=== PATIENT | female | born 1950 | race Caucasian/White ===

== ENCOUNTER 2019-02-20 10:12 | Emergency (ER) | payer MEDICARE, OTHER ==
[2019-02-20] MEDS ORDERED: Tetracaine HCl/PF 0.5% 4 ML Bottle EYERT ONE (10:27)
--- NOTE | 2019-02-20 10:27 | EDM.PDOC ---
ED HPI GENERAL MEDICAL PROBLEM - General Chief Complaint: Eye Problems Stated Complaint: RT EYE PAIN Time Seen by Provider: 02/20/19 10:25 Source of Information: Reports: Patient History Limitations: Reports: No Limitations - History of Present Illness INITIAL COMMENTS - FREE TEXT/NARRATIVE: HISTORY AND PHYSICAL: History of present illness: Patient is a 68-year-old female who presents to the emergency room with complaints of foreign body in the right eye. She states while using her makeup mirror she noticed "black dots" on the right eye which she had not noticed previous. She states since noticing that she does have some irritation. Patient does not recall any activities where if she would have been exposed to a foreign body (such as welding or anything falling into her eye). She states she was gardening yesterday and cleaning in the basement; but doesn't recall noticing any "pinpoint" time which something bothered her eye. Patient reports that she used Latisse for the first time yesterday. Did not have any burning or discomfort with application. She denies any change in vision. Denies any pain with ocular movement. Patient denies any fever, chills, headache, change in vision, syncope or near syncope. Denies any chest pain, back pain, shortness of breath or cough. Denies any abdominal pain, nausea, vomiting, diarrhea, constipation or dysuria. Has not noted any blood in urine or stool. Patient has been eating and drinking appropriately. Review of systems: As per history of present illness and below otherwise all systems reviewed and negative. Past medical history: As per history of present illness and as reviewed below otherwise noncontributory. Surgical history: As per history of present illness and as reviewed below otherwise noncontributory. Social history: See social history for further information Family history: As per history of present illness and as reviewed below otherwise noncontributory. Physical exam: General: Well-developed and well-nourished 68-year-old female. Alert and oriented. Nontoxic appearing and in no acute distress. HEENT: Atraumatic, normocephalic, pupils equal and reactive bilaterally, negative for conjunctival pallor or scleral icterus, normal variance of the pinguecula to bilateral sclera. Her mucous membranes are moist, TMs normal bilaterally, throat clear, neck supple, nontender, trachea midline. No drooling or trismus noted. No meningeal signs. No hot potato voice noted. Lungs: Clear to auscultation, breath sounds equal bilaterally, chest nontender. Heart: S1S2, regular rate and rhythm without overt murmur Abdomen: Soft, nondistended, nontender. Negative for masses. Pelvis: Stable nontender. Genitourinary: Deferred. Rectal: Deferred. Skin: Intact, warm, dry. No lesions or rashes noted. Extremities: Atraumatic, moves all extremities per self without difficulty or deficits, negative for cords or calf pain. Neurovascular unremarkable. Neuro: Awake, alert, oriented. Cranial nerves II through XII unremarkable. Cerebellum unremarkable. Motor and sensory unremarkable throughout. Exam nonfocal. Notes: Visual Acuity done and reviewed by me. Patient wears glasses, but no contact lenses. Tetracaine was used for comfort purposes. Fluorescein and Mcdermott lamp used for eye exam. Small corneal abrasion noted at the 7 o'clock position on the iris. Patient has no ocular pain with range of motion. No scleral injection. No drainage or discharge noted. We'll treat with erythromycin ointment. I encouraged her to follow-up with the wine cellar stock clerk on Friday for reevaluation if she continues to have symptoms, or return to the ED at anytime. Supportive care measures were reviewed and discussed. Voices understanding and is agreeable to plan of care. Denies any further questions or concerns at this time. Diagnostics: Visual Exam Therapeutics: Tetracaine Prescription: Erythromycin ointment Impression: Corneal abrasion, right Plan: 1. Take the antibiotic as directed. 2. Call Friday to follow up with ophthalmology. 3. Please stop using the Latisse until your symptoms have resolved. 4. Return to the ED as needed and as discussed. Definitive disposition and diagnosis as appropriate pending reevaluation and review of above. - Related Data Allergies Allergy/AdvReac Type Severity Reaction Status Date / Time No Known Allergies Allergy Verified 04/03/15 10:56 Home Meds: Home Meds Multivitamin [Multi-Vitamin Daily] 1 tab PO DAILY 04/03/15 [History] Apixaban [Eliquis] 5 mg PO DAILY 02/20/19 [History] Butalb/Acetaminophen/Caffeine [Jbzvbg-Yipoxcwp-Raol 50-325-40] 1 tab PO PRN [History] Calcium Carbonate/Vitamin D3 [Caltrate 600 + D Soft Chew Tab] 1 tab PO DAILY [History] Erythromycin Base [Erythromycin 0.5% Ophth Oint] 1 applic OP Q4H 5 Days #1 tube 02/20/19 [Rx] Hydrocodone/Acetaminophen [[place]am 5-325 Tablet] 1 tab PO DAILY PRN 02/20/19 [ History] Metoprolol Succinate/HCTZ [Metoprolol ER-Hctz 25-12.5 mg] 1 tab PO DAILY [History] Omeprazole 20 mg PO DAILY 02/20/19 [History] ED ROS GENERAL - Review of Systems Review Of Systems: ROS reveals no pertinent complaints other than HPI. ED EXAM GENERAL W FULL EYE - Physical Exam Exam: See Below (See dictation) Course - Vital Signs Last Recorded V/S: Last Vital Signs Temp 97.5 F 02/20/19 10:31 Pulse 67 02/20/19 10:31 Resp 18 02/20/19 10:31 BP 125/65 02/20/19 10:31 Pulse Ox 98 02/20/19 10:31 - Orders/Labs/Meds Meds: Medications Discontinued Medications Generic Name Dose Route Start Last Admin Trade Name Freq PRN Reason Stop Dose Admin Tetracaine HCl 1 ml 02/20/19 10:27 02/20/19 10:38 Tetracaine 0.5% Steri-Unit Jessica EYERT 02/20/19 10:28 1 applic ASDIRECTED ONE Administration Tetracaine HCl Confirm 02/20/19 10:38 Tetracaine 0.5% Steri-Unit Jessica Administered 02/20/19 10:39 Dose 4 ml .ROUTE .STK-MED ONE Departure - Departure Time of Disposition: 10:41 Disposition: Home, Self-Care 01 Clinical Impression: Corneal abrasion, left Qualifiers: Encounter type: initial encounter Qualified Code(s): S05.02XA - Injury of conjunctiva and corneal abrasion without foreign body, left eye, initial encounter - Discharge Information Prescriptions: Erythromycin Base [Erythromycin 0.5% Ophth Oint] 1 applic OP Q4H 5 Days #1 tube Instructions: Corneal Abrasion, [id number] Referrals: PCP,None [Primary Care Provider] - Forms: ED Department Discharge Additional Instructions: The following information is given to patients seen in the emergency department who are being discharged to home. This information is to outline your options for follow-up care. We provide all patients seen in our emergency department with a follow-up referral. The need for follow-up, as well as the timing and circumstances, are variable depending upon the specifics of your emergency department visit. If you don't have a primary care physician on staff, we will provide you with a referral. We always advise you to contact your personal physician following an emergency department visit to inform them of the circumstance of the visit and for follow-up with them and/or the need for any referrals to a consulting specialist. The emergency department will also refer you to a specialist when appropriate. This referral assures that you have the opportunity for follow-up care with a specialist. All of these measure are taken in an effort to provide you with optimal care, which includes your follow-up. Under all circumstances we always encourage you to contact your private physician who remains a resource for coordinating your care. When calling for follow-up care, please make the office aware that this follow-up is from your recent emergency room visit. If for any reason you are refused follow-up, please contact the [facility] Emergency Department at and asked to speak to the emergency department charge nurse. [facility] [address] [place] [id number] [facility] [address] [place] [id number] 1. Take the antibiotic as directed. 2. Call Friday to follow up with ophthalmology. 3. Please stop using the Latisse until your symptoms have resolved. 4. Return to the ED as needed and as discussed.
[2019-02-20] MEDS ORDERED: Tetracaine HCl/PF 0.5% 4 ML Bottle ONE (10:38)
[2019-02-20 12:43] VITALS: BP 121/70
== END 2019-02-20 11:00 | disposition home or self-care (01) ==
LOC: MW.ED 10:12
DX: S05.02XA Injury of conjunctiva and corneal abrasion without foreign body, left eye, initial encounter (principal); X58.XXXA Exposure to other specified factors, initial encounter
CPT/HCPCS: 99283

== ENCOUNTER 2019-03-23 08:32 | Emergency (ER) | payer MEDICARE, OTHER ==
[2019-03-23] MEDS ORDERED: Sodium Chloride 0.9% 2.5 ML Syringe FLUSH PRN (08:37)
[2019-03-23] MEDS ORDERED: Sodium Chloride 0.9% 10 ML Syringe FLUSH PRN (08:37)
--- NOTE | 2019-03-23 08:42 | EDM.PDOC ---
ED HPI GENERAL MEDICAL PROBLEM - General Chief Complaint: Cardiovascular Problem Stated Complaint: FAST HEART RATE Time Seen by Provider: 03/23/19 08:36 - History of Present Illness INITIAL COMMENTS - FREE TEXT/NARRATIVE: HISTORY AND PHYSICAL: History of present illness: Patient's a 68-year-old white female with history of atrial fibrillation with recent reconstructive surgery for her breast status post mastectomy who presents with a concern of palpitations patient denies chest pain she states she felt a little "shaky with this" on arrival there is no shortness of breath or chest pain. She was on eliquis which was discontinued preoperatively and she continues off the medication currently. Review of systems: As per history of present illness and below otherwise all systems reviewed and negative. Past medical history: As per history of present illness and as reviewed below otherwise noncontributory. Surgical history: As per history of present illness and as reviewed below otherwise noncontributory. Social history: No reported history of drug or alcohol abuse. Family history: As per history of present illness and as reviewed below otherwise noncontributory. Physical exam: HEENT: Atraumatic, normocephalic, pupils reactive, negative for conjunctival pallor or scleral icterus, mucous membranes moist, throat clear, neck supple, nontender, trachea midline. Lungs: Clear to auscultation, breath sounds equal bilaterally, chest nontender. Heart: S1S2, regular, negative for clicks, rubs, or JVD. Abdomen: Soft, nondistended, nontender. Negative for masses or hepatosplenomegaly. Negative for costovertebral tenderness. Pelvis: Stable nontender. Genitourinary: Deferred. Rectal: Deferred. Extremities: Atraumatic, negative for cords or calf pain. Neurovascular unremarkable. Neuro: Awake, alert, oriented. Cranial nerves II through XII unremarkable. Cerebellum unremarkable. Motor and sensory unremarkable throughout. Exam nonfocal. Diagnostics: CBC CMP troponin PT/INR chest x-ray EKG Therapeutics: IV O2 monitor Impression: #1 palpitations #2 history of atrial fibrillation #3 history of recent breast reconstructive surgery Definitive disposition and diagnosis as appropriate pending reevaluation and review of above. - Related Data Allergies Allergy/AdvReac Type Severity Reaction Status Date / Time No Known Allergies Allergy Verified 03/23/19 08:40 Home Meds: Home Meds Multivitamin [Multi-Vitamin Daily] 1 tab PO DAILY 04/03/15 [History] Apixaban [Eliquis] 5 mg PO BID 02/20/19 [History] Butalb/Acetaminophen/Caffeine [Yyhrnx-Fugwgvmq-Vclv 50-325-40] 1 tab PO Q4H PRN 02/20/19 [History] Calcium Carbonate/Vitamin D3 [Caltrate 600 + D Soft Chew Tab] 1 tab PO DAILY [History] Omeprazole 20 mg PO DAILY 02/20/19 [History] Cefadroxil [Duricef] 500 mg PO BID 03/23/19 [History] Metoprolol Succinate [Toprol XL 100mg] 50 mg PO DAILY 03/23/19 [History] Ondansetron [Zofran ODT] 4 mg PO Q4H PRN 03/23/19 [History] Tamoxifen Citrate 20 mg PO DAILY 03/23/19 [History] traMADol [Ultram] 50 mg PO Q8HR PRN 03/23/19 [History] Past Medical History HEENT History: Reports: Impaired Vision Cardiovascular History: Reports: Afib - Past Surgical History Female Surgical History: Reports: Breast Biopsy, Mastectomy ED ROS GENERAL - Review of Systems Review Of Systems: ROS reveals no pertinent complaints other than HPI. ED EXAM, GENERAL - Physical Exam Exam: See Below (dictation) Course - Vital Signs Text/Narrative:: Patient's emergency department course has been unremarkable I discussed with patient her diagnostics and offered admission for observation patient declines will follow with her doctor and return as needed as discussed Last Recorded V/S: Last Vital Signs Temp 36.5 C 03/23/19 08:37 Pulse 67 03/23/19 09:44 Resp 14 03/23/19 09:44 BP 145/78 H 03/23/19 09:44 Pulse Ox 97 03/23/19 09:44 - Orders/Labs/Meds Orders: Active Orders 24 hr Category Date Time Status Cardiac Monitoring [RC] . DIRECTED Care 03/23/19 08:37 Active EKG Documentation Completion [RC] STAT Care 03/23/19 08:37 Active Pulse Oximetry [RC] ASDIRECTED Care 03/23/19 08:37 Active Chest 1V Frontal [CR] Stat Exams 03/23/19 08:37 Taken Sodium Chloride 0.9% [Saline Flush] Med 03/23/19 08:37 Active 10 ml FLUSH ASDIRECTED PRN Sodium Chloride 0.9% [Saline Flush] Med 03/23/19 08:37 Active 2.5 ml FLUSH ASDIRECTED PRN Saline Lock Insert [OM.PC] Stat Oth 03/23/19 08:37 Ordered Medication Orders Sodium Chloride (Saline Flush) 10 ml FLUSH ASDIRECTED PRN PRN Reason: Keep Vein Open Sodium Chloride (Saline Flush) 2.5 ml FLUSH ASDIRECTED PRN PRN Reason: Keep Vein Open Labs: Laboratory Tests 03/23/19 03/23/19 03/23/19 Range/Units 08:54 08:54 08:54 WBC 3.73 L (4.0-11.0) K/uL RBC 4.17 L (4.30-5.90) M/uL Hgb 12.1 (12.0-16.0) g/dL Hct 38.2 (36.0-46.0) % MCV 91.6 (80.0-98.0) fL MCH 29.0 (27.0-32.0) pg MCHC 31.7 (31.0-37.0) g/dL RDW Std Deviation 43.9 (28.0-62.0) fl RDW Coeff of Patricia 13 (11.0-15.0) % Plt Count 190 (150-400) K/uL MPV 10.50 (7.40-12.00) fL Neut % (Auto) 51.2 (48.0-80.0) % Lymph % (Auto) 33.5 (16.0-40.0) % [place] % (Auto) 8.8 (0.0-15.0) % Eos % (Auto) 6.2 (0.0-7.0) % Baso % (Auto) 0.3 (0.0-1.5) % Neut # (Auto) 1.9 (1.4-5.7) K/uL Lymph # (Auto) 1.3 (0.6-2.4) K/uL [place] # (Auto) 0.3 (0.0-0.8) K/uL Eos # (Auto) 0.2 (0.0-0.7) K/uL Baso # (Auto) 0.0 (0.0-0.1) K/uL Nucleated RBC % 0.0 /100WBC Nucleated RBCs # 0 K/uL INR 0.97 Sodium 142 (136-145) mmol/L Potassium 3.8 (3.5-5.1) mmol/L Chloride 107 (98-107) mmol/L Carbon Dioxide 26.3 (21.0-32.0) mmol/L BUN 21 H (7.0-18.0) mg/dL Creatinine 0.9 (0.6-1.0) mg/dL Est Cr Clr Drug Dosing 55.33 mL/min Estimated GFR (MDRD) > 60.0 ml/min Glucose 92 (74-106) mg/dL Calcium 8.6 (8.5-10.1) mg/dL Total Bilirubin 0.4 (0.2-1.0) mg/dL AST 22 (15-37) IU/L ALT 18 (14-63) IU/L Alkaline Phosphatase 46 (46-116) U/L Troponin I < 0.050 (0.000-0.056) ng/mL Total Protein 6.6 (6.4-8.2) g/dL Albumin 3.2 L (3.4-5.0) g/dL Globulin 3.4 (2.6-4.0) g/dL Albumin/Globulin Ratio 0.9 (0.9-1.6) TSH 3rd Generation 4.42 H (0.36-3.74) uIU/mL Meds: Medications Generic Name Dose Route Start Last Admin Trade Name Freq PRN Reason Stop Dose Admin Sodium Chloride 10 ml 03/23/19 08:37 Saline Flush FLUSH ASDIRECTED PRN Keep Vein Open Sodium Chloride 2.5 ml 03/23/19 08:37 Saline Flush FLUSH ASDIRECTED PRN Keep Vein Open Departure - Departure Time of Disposition: 10:10 Disposition: Home, Self-Care 01 Condition: Good Clinical Impression: Palpitations Referrals: PCP,None [Primary Care Provider] - Forms: ED Department Discharge Additional Instructions: The following information is given to patients seen in the emergency department who are being discharged to home. This information is to outline your options for follow-up care. We provide all patients seen in our emergency department with a follow-up referral. The need for follow-up, as well as the timing and circumstances, are variable depending upon the specifics of your emergency department visit. If you don't have a primary care physician on staff, we will provide you with a referral. We always advise you to contact your personal physician following an emergency department visit to inform them of the circumstance of the visit and for follow-up with them and/or the need for any referrals to a consulting specialist. The emergency department will also refer you to a specialist when appropriate. This referral assures that you have the opportunity for followup care with a specialist. All of these measure are taken in an effort to provide you with optimal care, which includes your followup. Under all circumstances we always encourage you to contact your private physician who remains a resource for coordinating your care. When calling for followup care, please make the office aware that this follow-up is from your recent emergency room visit. If for any reason you are refused follow-up, please contact the [facility] emergency department at and asked to speak to the emergency department charge nurse. Continue current medications as directed follow-up primary medical doctor as discussed return as needed as discussed - My Orders Last 24 Hours: My Active Orders 03/23/19 08:37 Cardiac Monitoring [RC] . DIRECTED EKG Documentation Completion [RC] STAT Pulse Oximetry [RC] ASDIRECTED Chest 1V Frontal [CR] Stat Sodium Chloride 0.9% [Saline Flush] 10 ml FLUSH ASDIRECTED PRN Sodium Chloride 0.9% [Saline Flush] 2.5 ml FLUSH ASDIRECTED PRN Saline Lock Insert [OM.PC] Stat - Assessment/Plan Last 24 Hours: My Active Orders 03/23/19 08:37 Cardiac Monitoring [RC] . DIRECTED EKG Documentation Completion [RC] STAT Pulse Oximetry [RC] ASDIRECTED Chest 1V Frontal [CR] Stat Sodium Chloride 0.9% [Saline Flush] 10 ml FLUSH ASDIRECTED PRN Sodium Chloride 0.9% [Saline Flush] 2.5 ml FLUSH ASDIRECTED PRN Saline Lock Insert [OM.PC] Stat
[2019-03-23 09:47] LABS: CHLORIDE,CL 107 mmol/L (98-107); SODIUM,NA 142 mmol/L (136-145)
--- NOTE | 2019-03-23 10:18 | CR ---
EXAM DATE: 03/23/19 PATIENT'S AGE: 68 Patient: YVONNE SIMON Facility: [facility] Site Site : 1950 Study: XRay-Chest [id number]/28/2019 9:20:32 AM Ordering Physician: CLINTON JIMENEZ MD Final Report: CHEST 1 VIEW AP INDICATION: Chest pain. IMPRESSION: Normal heart size and vascular pattern. Lungs are clear. No pneumothorax or pleural abnormality. ECG Monitor leads projected over the patient. Dictated by Robel Dennison MD @ Mar 23 2019 9:47AM Signed by: Robel Dennison MD @03/23/2019 9:48:56 AM (Electronic Signature) Report Signed by Proxy. [facility]
[2019-03-23 11:27] VITALS: BP 141/78
== END 2019-03-23 10:29 | disposition home or self-care (01) ==
LOC: MW.ED 08:32
DX: R00.2 Palpitations (principal); I48.91 Unspecified atrial fibrillation; Z79.899 Other long term (current) drug therapy
CPT/HCPCS: 36415; 71045; 71045-26; 80053; 84443; 84484; 85025; 85610; 93005; 99283; 99285-25

== ENCOUNTER 2020-09-26 07:24 | Day surgery (SDC) | payer MEDICARE, OTHER ==
[~2020-09-26 07:24] MED LIST: Glycopyrrolate 0.2 MG/ML SDV ONE; Lactated Ringers 1,000 ML IV SCH; Lidocaine 2% 5 ML SDV ONE; Midazolam 1 MG/ML 2 ML SDV ONE; Propofol 200 MG/20 ML SDV ONE; Sodium Chloride 0.9% 10 ML SDV IV PRN; Sodium Chloride 0.9% 10 ML Syringe FLUSH PRN; Sodium Chloride 0.9% 2.5 ML Syringe FLUSH PRN
--- NOTE | 2020-09-26 08:19 | PCM.PREANE ---
Preanesthetic Assessment - Anesthesia/Transfusion/Family Hx Anesthesia History: Prior Anesthesia Reaction Other Type of Anesthesia Reaction Comment: states has a small airway Family History of Anesthesia Reaction: No Transfusion History: No Prior Transfusion(s) - Review of Systems General: No Symptoms Pulmonary: No Symptoms Cardiovascular: No Symptoms Gastrointestinal: No Symptoms Neurological: No Symptoms Other: Reports: None - Physical Assessment NPO Status Date: 09/25/20 Vital Signs: Last Vital Signs Temp 97.7 F 09/26/20 07:43 Pulse 94 09/26/20 07:43 Resp 15 09/26/20 07:43 BP 134/64 09/26/20 07:43 Pulse Ox 96 09/26/20 07:43 Height: 5 ft 5 in Weight: 63.503 kg ASA Class: 2 Mental Status: Alert & Oriented x3 Airway Class: Mallampati = 2 Dentition: Reports: Normal Dentition ROM/Head Extension: Full Lungs: Clear to Auscultation, Normal Respiratory Effort Cardiovascular: Regular Rate - Allergies Allergies/Adverse Reactions: Allergies Allergy/AdvReac Type Severity Reaction Status Date / Time oxycodone Allergy Vomiting Verified 09/20/20 08:09 - Blood Blood Available: No - Anesthesia Plan Pre-Op Medication Ordered: None - Acknowledgements Anesthesia Type Planned: General Anesthesia Pt an Appropriate Candidate for the Planned Anesthesia: Yes Alternatives and Risks of Anesthesia Discussed w Pt/Guardian: Yes Pt/Guardian Understands and Agrees with Anesthesia Plan: Yes PreAnesthesia Questionnaire HEENT History: Reports: Impaired Vision Other HEENT History: wears glasses Cardiovascular History: Reports: Arrhythmia Respiratory History: Reports: None Gastrointestinal History: Reports: GERD Genitourinary History: Reports: None Musculoskeletal History: Reports: Arthritis Other Musculoskeletal History: 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 Neurological History: Reports: Migraines Psychiatric History: Reports: Anxiety Endocrine/Metabolic History: Reports: Hypothyroidism Hematologic History: Reports: None Immunologic History: Reports: None Oncologic (Cancer) History: Reports: Breast Other Oncologic History: states had radiation, hormone therapy and had mastectomy for breast cancer (right breast) Dermatologic History: Reports: None - Infectious Disease History Infectious Disease History: Reports: Chicken Pox, Measles, Mumps Other Infectious Disease History: when a child - Past Surgical History Head Surgeries/Procedures: Reports: None HEENT Surgical History: Reports: Tonsillectomy, Other (See Below) Other HEENT Surgeries/Procedures: Jaw, oral maxillary Cardiovascular Surgical History: Reports: None GI Surgical History: Reports: None Female Surgical History: Reports: Breast Biopsy, Mastectomy Musculoskeletal Surgical History: Reports: Other (See Below) Other Musculoskeletal Surgeries/Procedures:: bunionectomy Oncologic Surgical History: Reports: Mastectomy Other Oncologic Surgeries/Procedures: right breast - SUBSTANCE USE Tobacco Use Status *Q: Never Tobacco User - HOME MEDS Home Medications: Home Meds Multivitamin [Multi-Vitamin Daily] 1 tab PO DAILY 04/03/15 [History] Butalb/Acetaminophen/Caffeine [Ybhlcc-Jcsfpvwm-Ytch 50-325-40] 1 tab PO Q4H PRN 02/20/19 [History] Calcium Carbonate/Vitamin D3 [Caltrate 600 + D Soft Chew Tab] 1 tab PO DAILY 02/20/19 [History] Metoprolol Succinate [Toprol XL 100mg] 50 mg PO DAILY 03/23/19 [History] Tamoxifen Citrate 20 mg PO DAILY 03/23/19 [History] Aspirin 1 tab PO DAILY 09/20/20 [History] Doxepin [SINEquan] 1 tab PO ASDIRECTED PRN 09/20/20 [History] Iron,Carbonyl/Ascorbic Acid [Vitron-C Tablet] 1 tab PO DAILY 09/20/20 [History] Levothyroxine Sodium [Levoxyl] 1 tab PO DAILY 09/20/20 [History] - CURRENT (IN HOUSE) MEDS Current Meds: Current Medications Lactated Ringer's (Ringers, Lactated) 1,000 mls @ 125 mls/hr IV ASDIRECTED JORJE Last Admin: 09/26/20 07:50 Dose: 125 mls/hr Documented by: Sodium Chloride (Saline Flush) 10 ml FLUSH ASDIRECTED PRN PRN Reason: Keep Vein Open Sodium Chloride (Saline Flush) 2.5 ml FLUSH ASDIRECTED PRN PRN Reason: Keep Vein Open Sodium Chloride (Saline Flush) 10 ml FLUSH ASDIRECTED PRN PRN Reason: Keep Vein Open Sodium Chloride (Saline Flush) 2.5 ml FLUSH ASDIRECTED PRN PRN Reason: Keep Vein Open Sodium Chloride (Normal Saline) 10 ml IV ASDIRECTED PRN PRN Reason: IV Use Discontinued Medications Glycopyrrolate (Robinul) Confirm Administered Dose 0.2 mg .ROUTE .STK-MED ONE Stop: 09/26/20 07:16 Lidocaine (Xylocaine-Mpf 2%) Confirm Administered Dose 5 ml .ROUTE .STK-MED ONE Stop: 09/26/20 07:16 Midazolam HCl (Versed 1 Mg/Ml) Confirm Administered Dose 2 mg .ROUTE .STK-MED ONE Stop: 09/26/20 07:16 Propofol (Diprivan 20 Ml) Confirm Administered Dose 600 mg .ROUTE .STK-MED ONE Stop: 09/26/20 07:16
--- NOTE | 2020-09-26 08:46 | PCM.OPNOTE ---
- General Post-Op/Procedure Note Date of Surgery/Procedure: 09/26/20 Operative Procedure(s): Diagnostic colonoscopy Findings: Normal colonoscopy Pre Op Diagnosis: Change in bowel habits Post-Op Diagnosis: normal colonoscopy Anesthesia Technique: MAC Primary Surgeon: Nadja Leal Condition: Good
--- NOTE | 2020-09-26 09:01 | PCM.POSTAN ---
POST ANESTHESIA ASSESSMENT - MENTAL STATUS Mental Status: Alert, Oriented - VITAL SIGNS Vital Signs: Last Vital Signs Temp 98.0 F 09/26/20 08:43 Pulse 77 09/26/20 09:00 Resp 13 09/26/20 09:00 BP 135/74 09/26/20 09:00 Pulse Ox 98 09/26/20 09:00 - RESPIRATORY Respiratory Status: Respiratory Rate WNL, Airway Patent, O2 Saturation Stable - CARDIOVASCULAR CV Status: Pulse Rate WNL, Blood Pressure Stable - GASTROINTESTINAL GI Status: No Symptoms - POST OP HYDRATION Hydration Status: Adequate & Stable
--- NOTE | 2020-09-26 10:09 | PCM48HPAN ---
Post Anesthesia Note - EVALUATION WITHIN 48HRS OF ANESTHETIC Vital Signs in Normal Range: Yes Patient Participated in Evaluation: Yes Respiratory Function Stable: Yes Airway Patent: Yes Cardiovascular Function Stable: Yes Hydration Status Stable: Yes Pain Control Satisfactory: Yes Nausea and Vomiting Control Satisfactory: Yes Mental Status Recovered: Yes Vital Signs: Last Vital Signs Temp 98.0 F 09/26/20 08:43 Pulse 77 09/26/20 09:00 Resp 13 09/26/20 09:00 BP 135/74 09/26/20 09:00 Pulse Ox 98 09/26/20 09:00
[2020-09-26 11:04] VITALS: BP 145/76; PULSE 83
--- NOTE | 2020-09-26 16:55 | OR ---
SURGEON: NADJA LEAL MD DATE OF PROCEDURE: 09/26/2020 PREOPERATIVE DIAGNOSIS: Change in bowel habits. POSTOPERATIVE DIAGNOSIS: Normal colonoscopy. PROCEDURE PERFORMED: Diagnostic colonoscopy. PRIMARY SURGEON: Nadja Leal MD ANESTHESIA: MAC. INSTRUMENT USED: Olympus colonoscope. EXTENT OF EXAM: To the cecum. PREPARATION: Good. LIMITATIONS: None. INDICATIONS FOR EXAMINATION: The patient is a 70-year-old female who presents with changes in her bowel habits. The decision was made to proceed with diagnostic colonoscopy. I explained the procedure; expected perioperative course; and the risks including bleeding, infection, or damage to surrounding structures including perforation. The patient verbalized understanding and wishes to proceed. PROCEDURE IN DETAIL: The patient was brought into the endoscopy suite and placed in the left lateral decubitus position. A time-out was completed verifying the patient's name, age, date of , allergies, and procedure to be performed. Monitored anesthesia care was induced and continuous oxygen was provided via nasal cannula throughout the procedure. After adequate sedation was achieved, a digital rectal exam was performed. This exam was within normal limits. A well-lubricated colonoscope was inserted in the rectum and advanced under direct visualization to the level of the cecum. The cecum was identified by both visual and anatomic landmarks. A photograph was taken of the cecal cap as well as with the scope retroflexed within the cecum. The scope was then fully withdrawn while examining the color, texture, anatomy, and integrity of the mucosa from the cecum to the anal canal. The findings were consistent with normal colonic mucosa. The scope was then brought into the rectum and retroflexed to allow visualization of the anal canal opening. This appeared normal and a photograph was taken. The scope was then straightened out and fully withdrawn. The cecum to anus time was 6 minutes. The patient tolerated the procedure well and was transferred to the PACU in stable condition. ENDOSCOPIC DIAGNOSIS: Normal colonoscopy. RECOMMENDATIONS: Follow up in clinic in 2 weeks. BRITANY / KARAN /[id number]
== END 2020-09-26 09:30 | disposition home or self-care (01) ==
LOC: MW.SDS 07:24
PROVIDERS: ATTEND Surgery
DX: R19.4 Change in bowel habit (principal); F41.9 Anxiety disorder, unspecified; G44.229 Chronic tension-type headache, not intractable; F32.9 Major depressive disorder, single episode, unspecified; C50.919 Malignant neoplasm of unspecified site of unspecified female breast; I48.0 Paroxysmal atrial fibrillation; E03.9 Hypothyroidism, unspecified; Z79.82 Long term (current) use of aspirin; Z79.890 Hormone replacement therapy; Z79.899 Other long term (current) drug therapy; Z88.5 Allergy status to narcotic agent; Z98.890 Other specified postprocedural states
CPT/HCPCS: 45378; J2001; J2250; J2704; J3490; J7120; 00811

== ENCOUNTER 2022-01-07 17:05 | Observation (INO) | payer MEDICARE, OTHER ==
[2022-01-07] MEDS ORDERED: Sodium Chloride 0.9% 1,000 ML IV ONE (17:07)
[2022-01-07] MEDS ORDERED: Ondansetron 4 MG/2 ML SDV IVPUSH ONE (17:24)
[2022-01-07] MEDS ORDERED: Ketorolac 30 MG/ML SDV IVPUSH ONE (17:24)
[2022-01-07 18:21] LABS: BLOOD UREA NITROGEN,BUN 17 mg/dL (7.0-18.0); CARBON DIOXIDE,CO2 25.6 mmol/L (21.0-32.0); CHLORIDE,CL 99 mmol/L (98-107); ESTIMATED GFR > 60.0 ml/min; GLUCOSE RANDOM 146 mg/dL (74-106); POTASSIUM,K 3.8 mmol/L (3.5-5.1); SODIUM,NA 137 mmol/L (136-145)
[2022-01-07] MEDS ORDERED: Iopamidol 755 MG/ML 500 ML Multipack Bottle IVPUSH STA (18:42)
[2022-01-07] MEDS ORDERED: Ondansetron 4 MG/2 ML SDV IVPUSH PRN (20:44)
[2022-01-07] MEDS ORDERED: Sodium Chloride 0.9% 20 ML SDV IV PRN (20:44)
[2022-01-07] MEDS ORDERED: Sodium Chloride 0.9% 10 ML Syringe FLUSH PRN (20:44)
[2022-01-07] MEDS ORDERED: Sodium Chloride 0.9% 2.5 ML Syringe FLUSH PRN (20:44)
[2022-01-07] MEDS ORDERED: HYDROmorphone 2 MG/ML Syringe IVPUSH PRN (20:44)
[2022-01-07] MEDS: Piperacillin/Tazobactam 3.375 GM in Sodium Chloride 0.9% 50 ML IV SCH (21:22)
[2022-01-07] MEDS: Acetaminophen/HYDROcodone 325-5 MG Tab PO PRN (22:59)
[2022-01-08] MEDS: Piperacillin/Tazobactam 3.375 GM in Sodium Chloride 0.9% 50 ML IV SCH ×3 (02:19→16:11)
[2022-01-08] MEDS: Dextrose 5%-Lactated Ringers 1,000 ML IV SCH ×2 (04:09→16:07)
[2022-01-08] MEDS ORDERED: Albuterol 0.083% 2.5 MG/3 ML Neb Soln NEB PRN ×2 (07:54→07:59)
[2022-01-08] MEDS ORDERED: Metoclopramide 10 MG/2 ML SDV IVPUSH PRN ×2 (07:54→07:59)
[2022-01-08] MEDS ORDERED: Ondansetron 4 MG/2 ML SDV IVPUSH PRN ×2 (07:54→07:59)
[2022-01-08] MEDS ORDERED: HYDROmorphone 1 MG/ML Syringe IVPUSH PRN ×2 (07:54→07:59)
[2022-01-08] MEDS ORDERED: Morphine 2 MG/ML SYRINGE IVPUSH PRN (07:54)
[2022-01-08] MEDS ORDERED: fentaNYL 100 MCG/2 ML SDV IVPUSH PRN ×2 (07:54→07:59)
[2022-01-08] MEDS ORDERED: Naloxone 0.4 MG/ML SDV IVPUSH PRN ×2 (07:54→07:59)
[2022-01-08] MEDS ORDERED: Morphine 4 MG/ML VIAL IVPUSH PRN (07:59)
[2022-01-08] MEDS ORDERED: Scopolamine 1.5 MG Transdermal Patch ONE (08:21)
[2022-01-08] MEDS ORDERED: fentaNYL 100 MCG/2 ML SDV ONE (12:53)
[2022-01-08] MEDS ORDERED: Lidocaine 2% 5 ML SDV ONE (12:53)
[2022-01-08] MEDS ORDERED: Dexamethasone 4 MG/ML 5 ML MDV ONE (12:53)
[2022-01-08] MEDS ORDERED: Sugammadex Sodium 200 MG/2 ML VIAL ONE (12:53)
[2022-01-08] MEDS ORDERED: Rocuronium Bromide 50 MG/5 ML Syringe ONE (12:53)
[2022-01-08] MEDS ORDERED: Ondansetron 4 MG/2 ML SDV ONE (12:53)
[2022-01-08] MEDS ORDERED: Propofol 200 MG/20 ML SDV ONE (12:53)
[2022-01-08] MEDS ORDERED: Midazolam 1 MG/ML 2 ML SDV ONE (12:53)
[2022-01-08] MEDS ORDERED: Bupivacaine 0.5% 30 ML SDV ONE (12:57)
[2022-01-08] MEDS ORDERED: Octyl 2-Cyanoacrylate 1 Tube ONE (12:57)
[2022-01-08] MEDS ORDERED: Diltiazem 180 MG Cap.CD PO SCH (21:30)
[2022-01-09 08:20] VITALS: BP 139/65; PULSE 70
[2022-01-09] MEDS ORDERED: Polyethylene Glycol 3350 Powder 17 GM Packet PO SCH (09:00)
[2022-01-09] MEDS ORDERED: TAMOXIFEN 20 MG PO SCH (09:00)
[2022-01-09] MEDS: Acetaminophen/HYDROcodone 325-5 MG Tab PO PRN (09:19)
[2022-01-09] MEDS ORDERED: Polyethylene Glycol 3350 Powder 17 GM Packet PO PRN (20:44)
[2022-01-09] MEDS ORDERED: Diltiazem 180 MG Cap.CD PO SCH (21:00)
== END 2022-01-09 12:20 | disposition home or self-care (01) ==
LOC: MW.ED 17:05 → MW.SDS 19:53 → MW.MS 20:37
PROVIDERS: ADMIT Surgery; ATTEND Surgery
DX: K35.30 Acute appendicitis with localized peritonitis, without perforation or gangrene (principal); N83.8 Other noninflammatory disorders of ovary, fallopian tube and broad ligament; K38.8 Other specified diseases of appendix; I48.91 Unspecified atrial fibrillation; H54.7 Unspecified visual loss; I10 Essential (primary) hypertension; G47.30 Sleep apnea, unspecified; K21.9 Gastro-esophageal reflux disease without esophagitis; E03.9 Hypothyroidism, unspecified; Z88.5 Allergy status to narcotic agent; Z90.89 Acquired absence of other organs; Z90.11 Acquired absence of right breast and nipple; Z01.812 Encounter for preprocedural laboratory examination; Z20.822 Contact with and (suspected) exposure to COVID-19; Z79.01 Long term (current) use of anticoagulants; Z79.899 Other long term (current) drug therapy; Z85.3 Personal history of malignant neoplasm of breast; Z98.890 Other specified postprocedural states
CPT/HCPCS: 36415; 44970; 74177; 80053; 81003; 82947; 83036; 83690; 85025; 86304; 88182; 88304; 93005; 96365; 96375; 96376; 99285; A9270; G0378; J1100; J1170; J1790; J1885; J2250; J2405; J2543; J2704; J3010; J3490; J7030; J7121; Q9967; U0002; 00840; 93010; 96374; 99219